=== PATIENT | female | born 1965 | race Caucasian/White ===

== ENCOUNTER 2016-10-27 10:50 | Day surgery (SDC) | payer OTHER ==
[~2016-10-27] VITALS: Ht 154.9 cm; Wt 88.5 kg
[~2016-10-27 10:50] MED LIST: ASPI-973 PO; CA C1TAB86 PO; CETI10CA PO; CYAN500 PO; FERR325C PO; MULT-1018 PO; OMEP20CA11 PO; Sodium Chloride LOK Flush 10 mL Syringe IV PRN; TURM500C7 PO; fentaNYL-PF 50 mCg/mL 2 mL Inj IVPUSH PRN
[2016-10-27 11:21] VITALS: BP 133/74; PULSE 75; RESP 14; O2SAT 96
[2016-10-27] MEDS: 0.9% Sodium Chloride 1,000 ML IV PRN ×2 (11:50→12:59)
[2016-10-27 13:18] VITALS: BP 125/63; PULSE 65; RESP 16; O2SAT 97
[2016-10-27 13:28] VITALS: BP 95/63; PULSE 68; RESP 16; O2SAT 99
--- NOTE | 2016-10-27 22:35 | ENDO ---
[address] [address] ENDOSCOPY PROCEDURE PATIENT: GERRI SAWYER : 1965 MR#: [id number] ADMIT: 10/27/2016 JOB ID: [id number] DATE: 10/27/2016 PRIMARY PROVIDER: Leticia Gamez MD PROCEDURE: 1. Esophagojejunoscopy with biopsy. 2. Colonoscopy. INDICATIONS: A 51-year-old female with chronic intermittent epigastric discomfort. She has had a gastric bypass. She additionally is presenting for colon cancer screening in the context of red blood per rectum and a positive FIT. EQUIPMENT: GIF H 180 J and a PCF H 180 AL. SEDATION: 1. 10 mg Versed. 2. 200 mcg fentanyl. COMPLICATIONS: None identified. BOWEL PREPARATION: Fair, adequate exam. PROCEDURE INFORMATION: After the risks and benefits were explained, written and verbal informed consent was obtained. Sedation was achieved as above. The scope was introduced into the mouth through the bite block, and advanced under direct visualization through the esophagus, stomach and into both the afferent and efferent limbs. The scope was slowly withdrawn to carefully examine the mucosa for any defects or lesions. Retroflexed views were not accomplished in the gastric pouch. The stomach was decompressed. The scope removed from the patient who tolerated the procedure well. The patient was then turned around. A digital rectal examination accomplished. No significant pathology appreciated apart from some mild internal hemorrhoids. The scope was introduced into the rectum and advanced under direct visualization to the level of the cecum as visualized by the presence of a fluid-filled cecum that we could see from just on top of the ileocecal valve. Navigation through this colon was extremely difficult with a marked amount of colon redundancy and looping. Multiple patient position changes were utilized including left lateral decubitus, supine, prone and right lateral decubitus along with multiple points of abdominal pressure and use of the stiffening device on the scope. The scope was slowly withdrawn to carefully examine the mucosa for any defects or lesions. Retroflexed views were accomplished in the rectum. The colon was decompressed. The scope removed from the patient who tolerated the procedure quite well. FINDINGS: 1. Small bowel: Both the short afferent and normal efferent limb appeared quite unremarkable. 2. Anastomosis: Gastrojejunostomy was patent without any marginal ulceration. 3. Stomach: There was one small retained suture just proximal to the GJ anastomosis. Minimal gastropathy in the residual gastric pouch. This was biopsied for histopathologic analysis and exclusion of H. pylori. 4. Esophagus: The squamocolumnar junction correlated with the top of the gastric folds. No acute erosive changes. No strictures. No mass lesions. No significant erosive features. Small sliding hiatal hernia. GE junction was judged to be at approximately 39 cm from the incisors. The remainder of the esophagus appeared normal. 5. Colon: Very difficult navigation, as above. Some diverticulosis was seen in the left side. Within the limitations of partial cecal intubation, no significant pathology was appreciated throughout. ENDOSCOPIC DIAGNOSES: 1. Small sliding hiatal hernia. 2. Normal gastric bypass anatomy. 3. Colonic diverticulosis. 4. Mild hemorrhoids. 5. Difficult colonic navigation. RECOMMENDATIONS: 1. Await histopathology. 2. No surveillance EGD is anticipated. 3. Repeat colonoscopy in 10 years' time, sooner should symptoms warrant. 4. Follow up in GI clinic on an as-needed basis.
--- NOTE | 2016-10-28 12:04 | PATH ---
SURGICAL PATHOLOGY Attending Physician:Gustavo Haq CASE STATUS: Signed Out PATIENT NAME: GERRI SAWYER PID: [id number] : 1965 DATE COLLECTED:10/27/2016 20:21 SPECIMEN: Gastric, Biopsy CLINICAL HISTORY: ABDOMINAL PAIN 1). GASTRIC BIOPSY FINAL DIAGNOSIS: 1.GASTRIC BIOPSY: GASTRIC BODY MUCOSA WITH NO DIAGNOSTIC ALTERATIONS. Negative for Helicobacter organisms. Negative for intestinal metaplasia. Negative for dysplasia and malignancy. ICD10 code R10.9 GROSS DESCRIPTION: The specimen is received in one formalin filled container labeled with the patient's name, sublabeled "gastric" and consists of a 0.3 x 0.3 x 0.3 CM portion of tissue which is entirely submitted in one cassette. 10/27/2016 DAC MICRO DESCRIPTION: See diagnosis. ICD-9 CODES: CPT CODES: 1: 49764 Electronically Signed Out Marbella Delgado MD [facility] [address], [place] [address] Technical component performed at [facility], [address] [place] [address] Ave[address], [place], [address]
== END 2016-10-27 23:59 | disposition home or self-care (01) ==
LOC: END 10:50
PROVIDERS: ATTEND Internal Medicine Gastroenterology
DX: Z12.11 Encounter for screening for malignant neoplasm of colon (principal); K57.30 Diverticulosis of large intestine without perforation or abscess without bleeding; K64.8 Other hemorrhoids; K44.9 Diaphragmatic hernia without obstruction or gangrene; Z98.84 Bariatric surgery status; Z79.82 Long term (current) use of aspirin
CPT/HCPCS: 43239; G0121; J2250; J7030

== ENCOUNTER 2017-05-18 19:43 | Emergency (ER) | payer OTHER ==
[~2017-05-18] VITALS: Ht 152.4 cm; Wt 91.8 kg
[~2017-05-18 19:43] MED LIST changes: -FERR325C PO; -Sodium Chloride LOK Flush 10 mL Syringe IV PRN; -fentaNYL-PF 50 mCg/mL 2 mL Inj IVPUSH PRN
[2017-05-18 19:44] VITALS: BP 133/90; PULSE 102; RESP 20; O2SAT 97
[2017-05-18 20:19] LABS: BASOPHILS % (AUTO) 0.2 % (0-3); EOSINOPHILS % (AUTO) 0.5 % (0-5); MONOCYTES % (AUTO) 7.5 % (4-12); Mean Corpuscular Volume 90.3 fL (81-100); NEUTROPHILS % (AUTO) 72.8 % (40-74); Platelet Count 276 bil/L (150-400)
[2017-05-18 20:39] LABS: TROPONIN T < 0.010 ug/L (0.0-0.011)
[2017-05-18 20:52] LABS: Magnesium 2.1 mg/dL (1.6-2.6)
--- NOTE | 2017-05-18 21:05 | ED.REPORT ---
HPI-Abd Pain F 40 and Over Date of Service May 18, 2017 ED Provider: Dr. Guevara 52 y/o female with a hx of abdominal ulcer, hiatal hernia and GERD presents to the ED complaining of sudden, constant epigastric pain that radiates to her back , onset a few hours ago. Associated sx include nausea, vomiting, diarrhea and difficulty breathing due to the pain. She denies melena, hematochezia, hematemesis and hx of pancreatitis. She took Pepcid and omeprazole at home but reports no relief. Her colonoscopy and endoscopy a couple of months ago were not concerning. The pt has had an appendectomy and cholecystectomy. Nursing Notes Stated Complaint: SEVERE STOMACH & BACK PAIN Chief Complaint: Female Abdominal Pain Nursing Notes Reviewed: Yes Allergies: Coded Allergies: ciprofloxacin (Verified Allergy, Severe, HIVES, 10/24/16) ciprofloxacin HCl (Verified Allergy, Severe, HIVES, 10/24/16) erythromycin base (Verified Allergy, Severe, HIVES, 10/24/16) fluconazole (Verified Allergy, Severe, HIVES/SOB, 10/24/16) Scheduled Aspirin (Aspirin) 81 Mg Tablet 81 MG PO DAILY Ca Carb & Gluc/Mag Ox & Gluc (Calcium Magnesium Caplet) 1 Each Tablet 1 EACH PO DAILY Cetirizine HCl (Zyrtec) 10 Mg Capsule 10 MG PO HS Cyanocobalamin (Vitamin B12) 500 Mcg Tablet 1,000 MCG PO DAILY Multivitamin (Multi Vitamin Daily) 1 Each Tablet 1 EACH PO DAILY Omeprazole (Omeprazole) 20 Mg Capsule.dr 20 MG PO DAILY Turmeric Root Extract (Turmeric) 500 Mg Capsule 500 MG PO DAILY General Time Seen by MD: 21:05 Chief Complaint Abdominal pain Hx Obtained From: Patient Arrived By: Walk-in Sudden in Onset?: Yes Onset Occurred: 1 - 4 hours ago Symptom Duration: Constant Location: : Epigastric Quality: Painful Radiation: : Back Severity: Current: Severe Severity: Maximum: Severe Recent Healthcare: No recent doctor visit Past Medical History Past Medical History Abdominal ulcer Hiatal hernia GERD Past Surgical History Appendectomy Cholecustectomy x2 Hysterectomy Gastric bypass Smoking History Former Smoker Social History Alcohol Use: Denies alcohol use Other Social History: Good social support Ambulatory Status Independent Review of Systems Respiratory: Reports: Shortness of breath (due to abdominal pain) GI: Reports: Abdominal pain, Diarrhea, Nausea, Vomiting, Denies: Hematemesis, Hematochezia, Melena Complete sys rev & neg: except as marked. Physical Exam Vital Signs Vital Signs (First) Date Time Temp Pulse Resp B/P Pulse Ox O2 Delivery O2 Flow Rate FiO2 05/18/17 19:44 36.7 102 20 133/90 97 Room Air Initial VS: Reviewed Head / Eyes: Atraumatic, Normocephalic Neck: Supple, Non-tender, Full range of motion Extremities: Vascular intact, Neuro intact, No swelling, No tenderness Skin: Warm, Dry, No cyanosis Neurologic: Alert, Oriented, Nonfocal General/Constitutional: Awake, Alert, Well hydrated, Cooperative Distress / Hydration: Positive: Distress mild Pt pacing in the room Respiratory / Chest: Atraumatic, Breath sounds NL, Breath sounds = bilat, No respiratory distress, No rales, No rhonchi, No wheezing Cardiovascular: Heart rate NL, Regular rhythm, Heart sounds NL, No gallop, No murmurs, No rubs Abdomen: Atraumatic, Soft, No guarding, No rebound Tenderness/Guarding/Rebound: Positive: Tender epigastric Back: Atraumatic, Full range of motion, Painless range of motion Interpretation & Diagnostics Lab Results Interpretation Result Diagram: 05/18/17200405/18/172004 Test 05/18/17 20:05 05/18/17 20:33 White Blood Count 16.5th/mm3 (3.8-10.1) Red Blood Count 4.73mil/mm3 (3.90-5.20) Hemoglobin 14.2g/dL (12.0-15.6) Hematocrit 42.7% (35.0-46.0) Mean Corpuscular Volume 90.3fL (81-100) Mean Corpuscular Hemoglobin 30.0pg (27.0-35.0) Mean Corpuscular Hemoglobin Concent 33.3% (32.0-37.0) Red Cell Distribution Width 13.2% (12.3-15.4) Platelet Count 276bil/L (150-400) Neutrophils (%) (Auto) 72.8% (40-74) Lymphocytes (%) (Auto) 18.6% (14-46) Monocytes (%) (Auto) 7.5% (4-12) Eosinophils (%) (Auto) 0.5% (0-5) Basophils (%) (Auto) 0.2% (0-3) Sodium Level 138mEq/L (134-144) Potassium Level 4.1mEq/L (3.5-5.2) Chloride Level 100mEq/L (97-108) Carbon Dioxide Level 19mmol/L (18-29) Blood Urea Nitrogen 21mg/dL (6-24) Creatinine 0.54mg/dL (0.57-1.00) Estimat Glomerular Filtration Rate 169mL/min (>59) Glucose Level 154mg/dL (60-99) Calcium Level 9.6mg/dL (8.5-10.1) Magnesium Level 2.1mg/dL (1.6-2.6) Total Bilirubin 0.4mg/dL (0.0-1.2) Aspartate Amino Transf (AST/SGOT) 18U/L (0-50) Alanine Aminotransferase (ALT/SGPT) 18U/L (0-32) Alkaline Phosphatase 81U/L (25-150) Troponin T < 0.010ug/L (0.0-0.011) Total Protein 7.7g/dL (6.4-8.4) Albumin 4.6g/dL (3.4-5.0) Lipase 33U/L (13-60) Hold Urine Received (Received) ECG Interpretation ECG Interpretation: Sinus tachycardia. Rate 102. Time: 19:55 Interpreted by: ED physician X-Ray Chest Interpretation Chest Xray Interpretation: IMPRESSION: 1. No acute cardiopulmonary disease. Dictated by: Malcolm Romo M.D. on 05/18/2017 at 21:07 Approved by: Malcolm Romo M.D. on 05/18/2017 at 21:16 View: Portable, 1 view Interpretation / Wet Read by: Interpret - Radiologist CT Abd / Pelvis Interpretation IMPRESSION: 1. Mild fluid distention and wall thickening of a few small bowel loops in the left abdomen compatible with a nonspecific enteritis, likely infectious or inflammatory. No evidence of obstruction. Dictated by: Malcolm Romo M.D. on 05/18/2017 at 21:48 Approved by: Malcolm Romo M.D. on 05/18/2017 at 21:53 Study type: Abdominal CT IV contrast Interpretation / Wet Read by: Interpret - Radiologist Re-Eval/Medical Decision Med Decision/Clinical Course 52-year-old with prior known ice hernia and reflux and ulcer presents with ordering abdominal pain epigastrium to back. Prior cholecystectomy noted. No alcohol use and no tobacco use. Exam is a sleeping benign apart from some epigastric tenderness. Labs note the elevated white count and no other significant findings. CT shows no significant findings. Suspect reflux primarily. Interestingly, a GI cocktail resulted in nearly instant, though partial relief. Omeprazole W this point with plan to upgrade to Nexium if not sufficient. Pepcid added. Follow-up with PCP. Source of Hx: Old records Re-Evaluation/Progress : Time of Eval: 23:30 Patient Status: Condition improved Re-Evaluation/Progress Note: Rechecked pt. She reports immideate relief after the GI cocktail. Discussed lab results, imaging results, diagnosis and plan to discharge. Pt understands and agrees with the plan. F/U instruction and RTER warning given. All questions addressed. Counseled Regarding: Diagnosis, Lab results, Need for follow-up, When/why to return to ED Discharge & Departure Primary Impression: Gastritis Gastritis type: unspecified gastritis Chronicity: acute Gastritis bleeding : without bleeding Qualified Code: K29.00 - Acute gastritis without bleeding Additional Impression: Esophagitis Disposition: Home Discharge Condition All VS Reviewed: Yes Patient Instructions: Esophagitis (ED), Gastritis (ED) Additional Instructions: Increase your omeprazole dose immediately to two tablets daily. If that is not sufficient, change to Nexium twice daily. Pepcid one tablet twice daily You may use a single additional dose of viscous Xylocaine and Maalox tonight if needed. Follow up with your doctor in the office. Return if you develop black stools, bloody stools, or vomit blood, or have any other new symptoms of concern. Referrals: Leticia Gamez MD (PCP) Scribe Attestation Portions of this note were transcribed by Marga Mora. I,, personally performed the history, physical exam and medical decision-making;I reviewed and confirmed the accuracy of the information in the transcribed note. Signed by Eva Araiza. 05/18/17 copies to: Leticia Gamez MD, Christopher W MD May 18, 2017 21:05 Marga Mora May 18, 2017 21:14
[2017-05-18] MEDS ORDERED: Ondansetron 2 mg/mL 2 mL Inj IVPUSH ONE (21:15)
[2017-05-18] MEDS ORDERED: HYDROmorphone 1 mg/mL Inj IVPUSH ONE (21:15)
[2017-05-18] MEDS ORDERED: HYDROmorphone 1 mg/mL Inj IVPUSH PRN (21:15)
--- NOTE | 2017-05-18 21:18 | DRSVH ---
PROCEDURE: X-RAY CHEST ONE VIEW, PORTABLE ([id number]) INDICATIONS: CHEST PAIN TECHNIQUE: One view of the chest was acquired. COMPARISON: None. FINDINGS: Surgical changes and devices: None. Lungs and pleura: No pleural effusions or pneumothorax. Lungs are clear. Mediastinum: Mediastinal contours appear normal. Heart size is normal. Bones and chest wall: No suspicious bony lesions. Overlying soft tissues appear unremarkable. IMPRESSION: 1. No acute cardiopulmonary disease. Dictated by: Malcolm Romo M.D. on 05/18/2017 at 21:07 Approved by: Malcolm Romo M.D. on 05/18/2017 at 21:16
[2017-05-18] MEDS ORDERED: Alum-Mag Hydrox-Simeth 30 mL Suspension PO ONE (21:20)
[2017-05-18 21:50] VITALS: BP 121/65; PULSE 91; RESP 18; O2SAT 95
--- NOTE | 2017-05-18 21:54 | DRSVH ---
PROCEDURE: CT ABDOMEN AND PELVIS WITH CONTRAST ([id number]) INDICATIONS: epigastric pain TECHNIQUE: After the administration of oral and intravenous contrast, 5 mm thick sections acquired from the diap hragms to the symphysis. 5 mm thick coronal and sagittal reformats were performed. For radiation do se reduction, the following was used: automated exposure control, adjustment of mA and/or kV accordi ng to patient size. COMPARISON: None. FINDINGS: Image quality: Excellent. ABDOMEN: Lung bases: Lung bases are clear. Heart size is normal. There is a small hiatal hernia. Solid organs: Liver and spleen are normal in size and enhancement. Gallbladder is surgically absent . There is no intra-or extrahepatic biliary ductal dilatation. Pancreas enhances normally. No adre nal nodules. Kidneys are normal in size and enhancement, without hydronephrosis. Peritoneum and bowel: There are postsurgical changes status post gastric bypass. The afferent and e fferent bowel loops are normal in caliber. At the level of the jejunojejunal anastomosis there is mi ld fluid distention of a few small bowel loops with bowel wall thickening of multiple loops of small bowel compatible with a nonspecific enteritis. No evidence of obstruction. No free fluid or air. Nodes and vessels: No retroperitoneal or mesenteric adenopathy. Aorta and inferior vena cava are no rmal in caliber. Miscellaneous: No ventral hernias. PELVIS: Genitourinary: Bladder wall thickness is normal. Miscellaneous: No inguinal hernias or adenopathy. Bones: No suspicious bony lesions. There is mild grade 1 anterolisthesis at L4-5. No vertebral body compression fractures. IMPRESSION: 1. Mild fluid distention and wall thickening of a few small bowel loops in the left abdomen compatib le with a nonspecific enteritis, likely infectious or inflammatory. No evidence of obstruction. Dictated by: Malcolm Romo M.D. on 05/18/2017 at 21:48 Approved by: Malcolm Romo M.D. on 05/18/2017 at 21:53
[2017-05-18 23:01] VITALS: BP 104/70; PULSE 82; RESP 22; O2SAT 95
[2017-05-18 23:45] VITALS: BP 123/79; PULSE 96; RESP 16; O2SAT 94
== END 2017-05-18 23:50 | disposition home or self-care (01) ==
LOC: SED 19:43
DX: K29.00 Acute gastritis without bleeding (principal); K20.9 Esophagitis, unspecified; K21.9 Gastro-esophageal reflux disease without esophagitis; Z90.710 Acquired absence of both cervix and uterus; Z87.891 Personal history of nicotine dependence; Z79.82 Long term (current) use of aspirin; Z88.1 Allergy status to other antibiotic agents
CPT/HCPCS: 36415; 71010; 74177; 80053; 82948; 83690; 83735; 84484; 85025; 93005; 96374; 96375; 96376; 99285; J1170; J2405; Q9967